=== PATIENT | female | born 1995 | race Asian ===

== ENCOUNTER 2018-09-20 04:19 | Emergency (ER) | payer OTHER ==
[~2018-09-20] VITALS: Ht 149.9 cm; Wt 48.0 kg
--- NOTE | 2018-09-20 04:26 | NUR ---
TOMMY. REPORT RECEIVED FROM EMS. +ETOT. VOMITTED 2 TIMES [employer]. NO MEDICAL COMPLAINS. FRIEND AT BEDSIDE. BP/SPO2 MONITORS IN PLACE. CALL LIGHT WITHIN REACH.
[2018-09-20] MEDS ORDERED: ONDANSETRON ODT 4 MG ONE (04:38)
--- NOTE | 2018-09-20 04:43 | NUR ---
PT MEDICATED PER EMAR. PT TOLERATED WELL.
[2018-09-20] MEDS ORDERED: ONDANSETRON ODT 4 MG PO ONE (05:00)
--- NOTE | 2018-09-20 05:48 | NUR ---
PT STILL SLEEPING IN GURNEY. RESPS EVEN AND UNLABORED. FRIEND AT BEDSIDE.
--- NOTE | 2018-09-20 06:22 | NUR ---
pt is not ready to go home for safety reason. pt still sleeping in gurney. resps even and unlabored. edmd notified.
--- NOTE | 2018-09-20 06:46 | NUR ---
report given to kerri curran.
--- NOTE | 2018-09-20 06:52 | NUR ---
report recieved from ASHISH schrader. [facility] [employer] friend at bedside. no acute distress noted.
--- NOTE | 2018-09-20 07:15 | NUR ---
PT still sleeping on gurney. responds to her name, easily rousable. no acute distress noted.
--- NOTE | 2018-09-20 07:54 | NUR ---
Pt awake, A&O x4, ambulatory down hallway to bathroom with steady gait.
[2018-09-20 08:02] VITALS: BP 122/74
== END 2018-09-20 08:04 | disposition home or self-care (01) ==
LOC: ED 07:50
DX: F10.220 Alcohol dependence with intoxication, uncomplicated (principal); Y90.9 Presence of alcohol in blood, level not specified
CPT/HCPCS: 99283; Q0162